=== PATIENT | male | born 1980 | race Two or more races ===

== ENCOUNTER → 2017-11-18 | Emergency (ER) | payer OTHER ==
[~2017-11-18] VITALS: Ht 180.3 cm; Wt 74.8 kg
[~2017-11-18] MED LIST: KETO10TA2 PO
== END | disposition home or self-care (01) ==
LOC: ER 00:04
DX: S60.031A Contusion of right middle finger without damage to nail, initial encounter (principal); W23.0XXA Caught, crushed, jammed, or pinched between moving objects, initial encounter; Y93.89 Activity, other specified; Y92.89 Other specified places as the place of occurrence of the external cause; Y99.8 Other external cause status

== ENCOUNTER 2019-06-13 09:24 | Outpatient (CLI) | payer OTHER | END 2019-06-13 10:15 | disposition home or self-care (01) | LOC: SONOGRAMA 09:24 | DX: N50.812 Left testicular pain (principal); R10.2 Pelvic and perineal pain; R10.32 Left lower quadrant pain ==

== ENCOUNTER 2019-06-14 08:34 | Outpatient (CLI) | payer OTHER | END 2019-06-14 14:55 | disposition home or self-care (01) | LOC: LAB 08:34 | DX: Z00.00 Encounter for general adult medical examination without abnormal findings (principal); M54.5 Low back pain; Z11.3 Encounter for screening for infections with a predominantly sexual mode of transmission; N50.812 Left testicular pain; R10.2 Pelvic and perineal pain; Z12.5 Encounter for screening for malignant neoplasm of prostate; Z12.11 Encounter for screening for malignant neoplasm of colon ==

== ENCOUNTER 2019-08-30 07:08 | Day surgery (SDC) | payer OTHER | END 2019-08-30 12:05 | disposition home or self-care (01) | LOC: AMB-ENDOS 07:08 | DX: K63.5 Polyp of colon (principal); K64.1 Second degree hemorrhoids; Z12.11 Encounter for screening for malignant neoplasm of colon ==

== ENCOUNTER 2020-05-28 06:00 | Outpatient (CLI) | payer OTHER ==
[~2020-05-28 06:00] MED LIST changes: +EC-NAPROSYN500 MG PO; +NORFLEX100MG PO
== END 2020-05-28 14:16 | disposition home or self-care (01) ==
LOC: PPH VACUNA 06:00
DX: Z23 Encounter for immunization (principal)

== ENCOUNTER → 2020-07-26 11:09 | Outpatient (CLI) | payer OTHER | END | disposition home or self-care (01) | LOC: LAB 11:09 | PROVIDERS: ATTEND Colon & Rectal Surgery | DX: Z20.828 Contact with and (suspected) exposure to other viral communicable diseases (principal); Z11.59 Encounter for screening for other viral diseases ==

== ENCOUNTER 2020-08-27 15:26 | Outpatient (CLI) | payer OTHER | END 2020-08-27 18:00 | disposition home or self-care (01) | LOC: PPH VACUNA 15:26 | DX: Z23 Encounter for immunization (principal) ==

== ENCOUNTER → 2020-09-02 | Outpatient (CLI) | payer OTHER | END | disposition home or self-care (01) | LOC: OFIC 805 12:45 | PROVIDERS: ATTEND Otolaryngology Otology & Neurotology | DX: H92.09 Otalgia, unspecified ear (principal); J39.2 Other diseases of pharynx ==

== ENCOUNTER 2020-11-20 11:40 | Day surgery (SDC) | payer OTHER ==
[2020-11-20] MEDS ORDERED: PERCOCET 5-3251 EACH PO (14:25)
[2020-11-20] MEDS ORDERED: NEURONTIN300 MG PO (14:25)
[2020-11-20] MEDS ORDERED: MIRALAX17 GM PO (14:25)
== END 2020-11-20 16:49 | disposition home or self-care (01) ==
LOC: CIR.AMB 11:40
PROVIDERS: ATTEND Surgery
DX: K42.0 Umbilical hernia with obstruction, without gangrene (principal); Z20.822 Contact with and (suspected) exposure to COVID-19

== ENCOUNTER 2021-06-09 08:00 | Outpatient (CLI) | payer OTHER ==
[~2021-06-09 08:00] MED LIST changes: +MIRALAX17 GM PO; +NEURONTIN300 MG PO; +PERCOCET 5-3251 EACH PO
== END 2021-06-09 08:30 | disposition home or self-care (01) ==
LOC: PPH VACUNA 08:00
PROVIDERS: ATTEND Emergency Medicine Pediatric Emergency Medicine
DX: Z23 Encounter for immunization (principal)

== ENCOUNTER 2022-04-17 09:09 | Outpatient (CLI) | payer OTHER | END 2022-04-17 13:15 | disposition home or self-care (01) | LOC: LAB 09:09 | DX: U07.1 COVID-19 (principal) ==

== ENCOUNTER 2022-05-12 09:12 | Outpatient (CLI) | payer OTHER ==
[~2022-05-12 09:12] MED LIST changes: +DICLOFENAC POTA50 MG PO
== END 2022-05-12 09:13 | disposition home or self-care (01) ==
LOC: RAD 09:12
PROVIDERS: ATTEND Physical Medicine & Rehabilitation
DX: M54.2 Cervicalgia (principal)

== ENCOUNTER 2022-05-13 11:54 | Outpatient (CLI) | payer OTHER | END 2022-05-13 12:01 | disposition home or self-care (01) | LOC: MRI 11:54 | PROVIDERS: ATTEND Physical Medicine & Rehabilitation | DX: M54.2 Cervicalgia (principal) | CPT/HCPCS: 72141 ==

== ENCOUNTER 2022-06-03 09:56 | Outpatient (CLI) | payer OTHER | END 2022-06-03 10:01 | disposition home or self-care (01) | LOC: PPH VACUNA 09:56 | PROVIDERS: ATTEND Emergency Medicine Pediatric Emergency Medicine | DX: Z23 Encounter for immunization (principal) ==

== ENCOUNTER → 2022-06-09 12:19 | Outpatient (CLI) | payer OTHER | END | disposition home or self-care (01) | LOC: LAB 12:19 | PROVIDERS: ATTEND Colon & Rectal Surgery | DX: Z20.822 Contact with and (suspected) exposure to COVID-19 (principal); Z11.59 Encounter for screening for other viral diseases; Z20.828 Contact with and (suspected) exposure to other viral communicable diseases ==